=== PATIENT | female | born 1975 | race Caucasian/White ===

== ENCOUNTER → 2017-11-29 | Outpatient (CLI) | payer MEDICAID, OTHER | LOC: M RAD 09:29 | DX: N64.59 Other signs and symptoms in breast (principal); N63.21 Unspecified lump in the left breast, upper outer quadrant | CPT/HCPCS: 77066 ==

== ENCOUNTER 2020-07-16 16:20 | Emergency (ER) | payer MEDICAID, OTHER ==
[~2020-07-16] VITALS: Ht 167.6 cm; Wt 124.0 kg
[2020-07-16] MEDS ORDERED: OMEP-221 (16:33)
[2020-07-16] MEDS ORDERED: ALBU8.5H (16:33)
[2020-07-16] MEDS ORDERED: AMIT50TA (16:33)
[2020-07-16] MEDS ORDERED: ATOR1TAB19 (16:33)
[2020-07-16 17:23] LABS: BASO % 0.5 % (0.0-1.0); EOS # 0.1 10^3/uL (0.0-0.5); EOS % 1.3 % (0.0-3.0); HEMATOCRIT 42.2 % (36.0-47.0); HEMOGLOBIN 13.4 g/dl (12.0-15.5); LYMPH % 23.9 % (24.0-44.0); MEAN CORPUSCULAR HEMOGLOBIN 29.5 pg (27.0-33.0); MEAN CORPUSCULAR HGB CONC 31.8 g/dl (32.0-36.5); MONO # 0.4 10^3/uL (0.0-0.8); MONO % 4.5 % (0.0-5.0); NEUTROPHILS # 5.8 10^3/uL (1.5-8.5); NEUTROPHILS % 69.3 % (36.0-66.0); PLATELET COUNT, AUTOMATED 325 10^3/uL (150-450); RED BLOOD COUNT 4.54 10^6/uL (4.00-5.40); WHITE BLOOD COUNT 8.4 10^3/uL (4.0-10.0)
[2020-07-16 17:34] LABS: INR 0.92; PROTHROMBIN TIME 12.5 SECONDS (12.5-14.3)
[2020-07-16 17:35] LABS: PARTIAL THROMBOPLASTIN TIME 32.4 SECONDS (24.2-38.5)
[2020-07-16 17:50] LABS: ALBUMIN 3.7 GM/DL (3.2-5.2); ALT/SGPT 25 U/L (12-78); BILIRUBIN,TOTAL 0.3 MG/DL (0.2-1.0); BLOOD UREA NITROGEN 11 MG/DL (7-18); CALCIUM LEVEL 9.1 MG/DL (8.5-10.1); CARBON DIOXIDE LEVEL 28 MEQ/L (21-32); CHLORIDE LEVEL 104 MEQ/L (98-107); CREATININE FOR GFR 0.74 MG/DL (0.55-1.30); GLOMERULAR FILTRATION RATE > 60.0 (>58); GLUCOSE, FASTING 153 MG/DL (70-100); POTASSIUM SERUM 3.9 MEQ/L (3.5-5.1); SODIUM LEVEL 138 MEQ/L (136-145); TOTAL PROTEIN 7.4 GM/DL (6.4-8.2)
--- NOTE | 2020-07-16 19:07 | REPVR ---
PROCEDURE INFORMATION: Exam: US Pelvis Complete, Transabdominal and US Pelvis, Transvaginal Exam date and time: 07/16/2020 6:18 PM Age: 44 years old Clinical indication: Pelvic pain; Additional info: Pelvic pain; Vaginal bleeding TECHNIQUE: Imaging protocol: Real-time transabdominal and transvaginal pelvic ultrasound (complete) with image documentation. Transvaginal imaging was used for better evaluation of the endometrium, adnexa, and/or cervix. COMPARISON: No relevant prior studies available. FINDINGS: Uterus/cervix: Uterus measures 11.2 x 5.5 x 6.8 cm. Transvaginal: The uterus measures 9.6 x 5.4 x 6.7 cm. The endometrial bilayer measures 9.5 mm in width. There are nabothian cysts in the cervix. Right adnexa: The right ovary measures 2.1 x 3.7 x 2.3 cm. It contains a hypoechoic structure measuring 2.5 x 2.0 x 1.7 cm. Arterial blood flow is detected. Left adnexa: The left ovary measures 3.3 x 3.0 x 2.0 cm. Arterial blood flow is detected. Intraperitoneal space: There is no significant free fluid in the cul-de-sac. Urinary bladder: Unremarkable. The it in The ovaries are not visualized transvaginally. IMPRESSION: 1. Normal appearance of the uterus. No leiomyomata are identified in the endometrium is normal appearance without thickening. No fluid is seen in the endometrial canal. 2. There is a 2.5 cm probable cyst containing complex fluid right ovary which could represent a hemorrhagic cyst among other etiologies. Electronically signed by: Shannen Ag On 07/16/2020 19:06:58 PM
[2020-07-16 19:27] VITALS: BP 140/65
== END 2020-07-16 19:29 | disposition home or self-care (01) ==
LOC: M ED 16:20
DX: N93.8 Other specified abnormal uterine and vaginal bleeding (principal); N83.201 Unspecified ovarian cyst, right side; K21.9 Gastro-esophageal reflux disease without esophagitis; E78.5 Hyperlipidemia, unspecified; F17.210 Nicotine dependence, cigarettes, uncomplicated; Z88.5 Allergy status to narcotic agent; Z91.018 Allergy to other foods; Z79.899 Other long term (current) drug therapy

== ENCOUNTER → 2020-07-31 | Outpatient (CLI) | payer OTHER ==
[~2020-07-31] MED LIST: ALBU8.5H; AMIT50TA; ATOR1TAB19; OMEP-221
[2020-07-31 15:59] LABS: THYROID STIMULATING HORMONE 1.22 uIU/ML (0.358-3.740)
== END ==
LOC: M WHC 12:03
PROVIDERS: ATTEND Obstetrics & Gynecology
DX: Z00.00 Encounter for general adult medical examination without abnormal findings (principal); N63.20 Unspecified lump in the left breast, unspecified quadrant

== ENCOUNTER → 2020-08-06 | Outpatient (CLI) | payer OTHER | LOC: M WHC 12:21 | PROVIDERS: ATTEND Obstetrics & Gynecology | DX: Z53.9 Procedure and treatment not carried out, unspecified reason (principal); Z12.31 Encounter for screening mammogram for malignant neoplasm of breast ==

== ENCOUNTER → 2020-08-13 | Outpatient (REF) | payer OTHER | LOC: M PLALAB 11:45 | PROVIDERS: ATTEND Obstetrics & Gynecology | DX: N93.8 Other specified abnormal uterine and vaginal bleeding (principal) ==

== ENCOUNTER → 2020-08-15 | Outpatient (CLI) | payer OTHER ==
--- NOTE | 2020-08-15 14:06 | REP ---
INDICATION: N63.20 PINEDA DIAG MAMMO/LEFT BREAST LUMP; N63.20 HX LEFT BREAST LUMP; PINEDA DIAG MAMMO/LEFT BREAST LUMP/N63.20. The patient reports a palpable lump in the upper-outer quadrant of the left breast which she feels has gotten somewhat bigger since it was last evaluated in November of 2017. COMPARISON: Mammography November 29, 2017 and June 04, 2015. September 21, 2016 images are also reviewed. TECHNIQUE: A skin marker is affixed to the skin at the site of the palpable lump in the upper outer quadrant on the left. Routine views of the left breast are augmented by 3D mammography and diagnostic magnified focal spot-compression images in the CC, true mL, and MLO plane. Standard views of the right breast including 3D tomography are carried out. A targeted left breast ultrasound is performed. FINDINGS: Breast parenchyma is essentially fat replaced as before. There is no dominant density in the area the palpable lump on the left side or elsewhere in either breast visualized mammographically. No architectural distortion, mass, or worrisome skin changes seen. No worrisome microcalcifications are observed. The mammogram is unchanged from comparison mammography. The Volpara volumetric breast density pattern is A. Targeted left breast sonography: Show scanning in the area of the palpable lump in the left breast at approximately 1 o'clock shows normal stromal elements. No cyst, mass or acoustic shadowing is seen. No suspicious sonographic findings. IMPRESSION: BIRADS/ACR category 1 negative mammogram and unremarkable left breast sonography. Mammogram is unchanged.. This patient's Tyrer-zick lifetime breast cancer risk assessment score is 8.6%. This mammogram was interpreted with the aid of an FDA-approved computer-aided detection system. The patient states she had a clinical breast exam in over a year. The patient letter being requested is M2. RECOMMENDATION: Repeat screening mammography recommended 1 year (for women over 40). <Electronically signed by Foster Odonnell > 08/15/20 [id number]
== END ==
LOC: M WHC 10:43
PROVIDERS: ATTEND Obstetrics & Gynecology
DX: N63.21 Unspecified lump in the left breast, upper outer quadrant (principal)
CPT/HCPCS: 76642; 77066; G0279

== ENCOUNTER → 2022-01-20 | Outpatient (CLI) | payer OTHER ==
[~2022-01-20] MED LIST changes: -OMEP-221; +OMEP40CA5
== END ==
LOC: M PLALAB 11:32
PROVIDERS: ATTEND Internal Medicine
DX: E04.1 Nontoxic single thyroid nodule (principal)

== ENCOUNTER → 2022-01-20 | Outpatient (CLI) | payer OTHER | LOC: M WHC 11:00 | PROVIDERS: ATTEND Internal Medicine | DX: E04.1 Nontoxic single thyroid nodule (principal) ==

== ENCOUNTER → 2022-02-16 | Outpatient (CLI) | payer OTHER | LOC: M WHC 10:58 | PROVIDERS: ATTEND Internal Medicine | DX: Z12.31 Encounter for screening mammogram for malignant neoplasm of breast (principal) ==

== ENCOUNTER → 2022-03-18 | Outpatient (CLI) | payer OTHER | LOC: M WHC 09:03 | PROVIDERS: ATTEND Internal Medicine | DX: R92.8 Other abnormal and inconclusive findings on diagnostic imaging of breast (principal); R92.1 Mammographic calcification found on diagnostic imaging of breast ==

== ENCOUNTER → 2023-12-13 | Outpatient (REF) | payer OTHER | LOC: M SFHCWAGY 15:10 | PROVIDERS: ATTEND Nurse Practitioner Family | DX: Z12.4 Encounter for screening for malignant neoplasm of cervix (principal) ==

== ENCOUNTER → 2023-12-21 | Outpatient (CLI) | payer OTHER | LOC: M WHC 08:08 | PROVIDERS: ATTEND Nurse Practitioner Family | DX: N64.9 Disorder of breast, unspecified (principal) ==

== ENCOUNTER → 2024-07-11 | Outpatient (CLI) | payer OTHER | LOC: M RAD 12:51 | PROVIDERS: ATTEND Internal Medicine | DX: E04.1 Nontoxic single thyroid nodule (principal) ==

== ENCOUNTER → 2024-08-01 | Outpatient (CLI) | payer OTHER | LOC: M WHC 11:32 | PROVIDERS: ATTEND Nurse Practitioner Family | DX: R92.8 Other abnormal and inconclusive findings on diagnostic imaging of breast (principal) ==

== ENCOUNTER → 2025-05-08 | Outpatient (CLI) | payer OTHER | LOC: M WHC 09:57 | PROVIDERS: ATTEND Nurse Practitioner Family | DX: Z12.31 Encounter for screening mammogram for malignant neoplasm of breast (principal); R92.313 Mammographic fatty tissue density, bilateral breasts ==